=== PATIENT | female | born 1970 | race Caucasian/White ===

== ENCOUNTER 2018-07-26 10:56 | Outpatient (CLI) | payer MEDICARE, MEDICAID ==
[2018-07-26] MEDS ORDERED: MIDAZOLAM INJ 2 MG/2 ML VIAL (J2250) As Ordered ONE (11:57)
[2018-07-26] MEDS ORDERED: IBUPROFEN 800 MG TAB As Ordered ONE (12:59)
[2018-07-26] MEDS ORDERED: IBUPROFEN 800 MG TAB PO ONE (13:30)
[2018-07-26 13:45] VITALS: BP 118/77
== END 2018-07-26 13:50 | disposition home or self-care (01) ==
LOC: M SDC 10:56
PROVIDERS: ATTEND Student in an Organized Health Care Education/Training Program
DX: I67.1 Cerebral aneurysm, nonruptured (principal); Z88.8 Allergy status to other drugs, medicaments and biological substances; Z88.0 Allergy status to penicillin
CPT/HCPCS: 99156; 99157; J2250